=== PATIENT | female | born 1935 | race Caucasian/White ===

== ENCOUNTER 2018-12-21 17:38 | Inpatient (IN) ==
[2018-12-21] MEDS ORDERED: 0.9 % Sodium Chloride 500 ML IV ONE (19:38)
[2018-12-21] MEDS ORDERED: Morphine Sulfate 2 MG/ML SYRINGE IVP ONE (20:40)
[2018-12-21 20:54] LABS: Basophils % 0.7 %; Eosinophils # 0.1 K/mcL (0.0-0.6); Eosinophils % 2.4 %; Hematocrit 23.1 % (35.3-44.9); Hemoglobin 7.5 g/dL (11.5-15.4); Immature Granulocytes % 0.4 % (0-4); Lymphocytes % 21.8 %; Mean Corpuscular HGB Conc 32.5 g/dL (31.6-35.5); Mean Corpuscular Hemoglobin 31.4 pg (28.0-33.3); Mean Corpuscular Volume 96.7 fL (83.0-100.0); Mean Platelet Volume 10.6 fL (9.4-12.4); Monocytes # 0.4 K/mcL (0.0-1.3); Monocytes % 9.6 %; Neutrophils # 2.9 K/mcL (1.6-8.9); Platelet Count 151 K/mcL (140-400); Red Blood Count 2.39 M/mcL (3.82-4.97); Red Cell Distribution Width 13.4 % (11.5-14.5); Segmented Neutrophils % 65.1 %; White Blood Count 4.5 K/mcL (4.3-11.1)
[2018-12-21 21:01] LABS: INR 3.8
[2018-12-21 21:12] LABS: Calcium 8.1 mg/dL (8.6-10.3); Potassium 4.2 mEq/L (3.5-5.1)
[2018-12-21] MEDS ORDERED: Ringers Solution, Lactated 1,000 ML IVC SCH (22:30)
--- NOTE | 2018-12-21 22:32 | Internal Med History&Physical ---
Date of Encounter: 12/21/18 Time of Encounter: 22:31 Internal Medicine - H&P: HPI Chief complaint: bleeding Admitted From: Home Plans for Post Hospital Care: Home History of present illness: Patricia Laws is an 83-year-old woman with diverticulosis who required a partial sigmoidectomy in the past due to diverticulitis, atrial fibrillation for which she is on warfarin and had a pacemaker inserted in 2007 who went to [place] emergency room earlier today with left lower quadrant pain and abdominal cramping over the past few days and this morning developed bright red blood in her stool. She describes the pain as stabbing in nature with sharp colicky exacerbations radiating to words the backside. The bleeding episodes continued on 2 more occasions associated with nausea and vomiting in addition to the abdominal pain so she went to the ER for evaluation. Over there she was found to have a hemoglobin of 9.4 which is down from 12.4 that she had 2 months ago. Her INR was noted to be 3.8 despite a goal of 2-3. It is mentioned that her stool occult blood test was negative there even though it was grossly red in appearance so there was concern that perhaps the color was food related. A CT scan was done which showed no acute findings other than colonic diverticulosis. She was discharged to home with outpatient follow-up recommended in the next few days. She went home and continued to have more bleeding episodes so she came to our ER. She tells me she has been bleeding all day but it started at 5AM when I went to urinate and blood followed in my stool. She reports a history of constipation. While hemodynamically stable on arrival here, repeat lab work showed a decline in her hemoglobin to 7.5 from 9.4 earlier this morning. Her INR remained at 3.8. 2 units of packed red blood cells were ordered and she was administered a 5 mg dose of vitamin K in addition to 2 units of FFP. She is admitted for further care. Of note, she tells me during her last colonoscopy something was removed and she ended up having a lot of bleeding that required hospitalization and blood transfusions. Vitals: Reviewed General: Slim elderly woman lying in bed in NAD. Skin: Pale, cold and dry. HEENT: Dry mucous membranes. (+) conjunctivae pallor. Neck: No lymphadenopathy. No JVD. No carotid bruits. No palpable thyroid. Chest: Normal thoracic expansion. Normal breath sounds. Clear to auscultation. Heart: Normal S1 & S2; rhythmic. No rubs or murmurs. Abdomen: Non-distended, soft and notably tender to palpation in the left lower quadrant. No peritoneal reaction. Extremities: No clubbing, cyanosis or edema. No calf tenderness. Normal distal pulses. Neurological: Awake, alert and oriented to person, place and time. No focal deficits. Psych: Affect appropriate. Assessment/Plan 1. Lower GI bleed: Suspect secondary to diverticular disease in the setting of a supratherapeutic INR. She will undergo correction of her medication induced coagulopathic state which should help subside the bleeding as well as replete the blood volume loss. Acute care surgery will be consulted for follow-up over this weekend in case she may need a colonoscopy if the bleeding is ongoing. Fluid resuscitation will be started. Keep nothing by mouth for now. 2. Acute blood loss anemia: Secondary to lower GI bleed in the setting of supratherapeutic INR. As noted above, 2 units of blood will be given as replacement for stabilization. 3. Supratherapeutic INR: Secondary to warfarin use. FFP and vitamin K have been given for correction. 4. Atrial fibrillation: Currently rate controlled. Anticoagulant therapy will be on hold for now given the bleeding situation. The risks/benefits of ongoing use will need to be weighed given her elderly age and risk of bleeding recurrences. Past Med Surg Social Fam HX - Past Medical History Medical history: arthritis, atrial fibrillation, cancer, COPD, GERD, hyperlipidemia, hypertension, other Additional medical history: breast cancer. parkinson's dx Psychiatric history: anxiety, depression - Past Surgical History Surgical History: appendectomy, colectomy (diverticulitis), hysterectomy, orthopedic, other (Hip replacement, right foot surgery), pacemaker/AICD Additional surgical history: EGD. colonoscopy. hip replacement -bilat. right foot. excision SCC right posterior calf. left breast excison with hx of chemo and radiation - Social History Smoking Status: Former smoker Smokeless Tobacco Status: No Alcohol use: none Drug use: none - Family History Mother Hx Family Neurologic Disorders: Yes (stroke) Father Hx Family Cardiac Disorders: Yes Sister Hx Family Cardiac Disorders: Yes Hx Family Cancer: Yes Internal Medicine - H&P: Meds Carbidopa/Levodopa ER 50/200 [Sinemet ER 50-200 Tab] 1 tab PO TID 11/04/15 [History] Potassium Chloride [K-Tab ER] 10 meq PO DAILY 11/04/15 [History] TraZODone 50 mg PO HS 11/04/15 [History] Warfarin [Coumadin] 5 mg PO 1800 11/04/15 [History] Citalopram [CeleXA] 20 mg PO DAILY 03/14/16 [History] Lovastatin 40 mg PO HS 03/14/16 [History] Metoprolol [Lopressor] 50 mg PO DAILY 05/30/18 [History] Cholecalciferol (D-3) [Vitamin D] 1,000 unit PO DAILY 12/21/18 [History] Furosemide [Lasix] 40 mg PO DAILY 12/21/18 [History] Losartan Potassium [Cozaar] 100 mg PO DAILY 12/21/18 [History] Omeprazole [PriLOSEC] 20 mg PO DAILY 12/21/18 [History] Polyethylene Glycol 3350 [MiraLAX Powder Bulk 17.9 Oz] 1 scoop PO DAILY PRN 12/21/18 [History] rOPINIRole [Requip] 1 mg PO TID 12/21/18 [History] Allergy/AdvReac Type Severity Reaction Status Date / Time adhesive tape Allergy Hives Verified 12/21/18 21:13 cephalexin Allergy Hives Verified 12/21/18 21:13 diphenhydramine Allergy Hives Verified 12/21/18 21:13 [From Benadryl] Penicillins Allergy Hives Verified 12/21/18 21:13 Sulfa (Sulfonamide Allergy Hives Verified 12/21/18 21:13 Antibiotics) vancomycin Allergy Anaphylaxis Verified 12/21/18 21:13 All Systems PM: A 10-system review of systems was performed and is negative for pertinent findings except as documented above in the HPI. - Constitutional Vitals: Temp Pulse Resp BP Pulse Ox 98.2 F 71 18 162/69 100 12/21/18 18:47 12/21/18 22:24 12/21/18 22:24 12/21/18 22:24 12/21/18 22:24 Exam: . Internal Med - H&P Results - Labs CBC & Chem 7: 12/21/18 20:38 12/21/18 20:38 Labs: Short CBC 12/21/18 Range/Units 20:38 WBC 4.5 (4.3-11.1) K/mcL Hgb 7.5 L D (11.5-15.4) g/dL Hct 23.1 L (35.3-44.9) % Plt Count 151 (140-400) K/mcL Neutrophils # 2.9 (1.6-8.9) K/mcL BMP 12/21/18 20:38 Sodium 137 Potassium 4.2 Chloride 107 Carbon Dioxide 23 BUN 33 H Creatinine 1.19 Glucose 104 Calcium 8.1 L - Time Spent With Patient Total time spent is greater than 50% in coordination of care (as documented) at patient's floor/unit and/or counseling patient:
--- NOTE | 2018-12-21 22:51 | Emergency Department Note ---
Disposition Clinical Impression: Lower gastrointestinal hemorrhage Disposition: Admitted As Inpatient Condition: Fair Time of Disposition: 21:20 GI Bleed HPI - General Chief complaint: ED GI Bleed Stated complaint: Rectal bleeding Time Seen by Provider: 12/21/18 19:16 Source: patient Limitations: no limitations - History of Present Illness HPI Narrative: This is an 83-year-old female who presents today with a complaint of bright red blood per rectum. Patient is on Coumadin for atrial fibrillation. Patient states that she noticed bleeding earlier this morning when she went to the bathroom. She describes slight lower abdominal discomfort. She also describes generalized weakness. Patient was seen at [facility] emergency department today. She had a workup which included a negative CT scan of her abdomen. Her hemoglobin was 9. She was sent home. Patient states she continued to have bloody stools so she came to the emergency department today. She denies any fever or chills. She denies any chest pain. Pt Subjective Complaint: gross bloody stools Consistency: intermittent Severity: moderate Worsens with: bowel movement Context: anticoagulant use Associated symptoms: Reports: abdominal pain - Related Data Home Medications Medication Instructions Recorded Confirmed Carbidopa/Levodopa ER 50/200 1 tab PO TID 11/04/15 12/21/18 [Sinemet ER 50-200 Tab] Potassium Chloride [K-Tab ER] 10 meq PO DAILY 11/04/15 12/21/18 TraZODone 50 mg PO HS 11/04/15 12/21/18 Warfarin [Coumadin] 5 mg PO 1800 11/04/15 12/21/18 Citalopram [CeleXA] 20 mg PO DAILY 03/14/16 12/21/18 Lovastatin 40 mg PO HS 03/14/16 12/21/18 Metoprolol [Lopressor] 50 mg PO DAILY 05/30/18 12/21/18 Cholecalciferol (D-3) [Vitamin D] 1,000 unit PO DAILY 12/21/18 12/21/18 Furosemide [Lasix] 40 mg PO DAILY 12/21/18 12/21/18 Losartan Potassium [Cozaar] 100 mg PO DAILY 12/21/18 12/21/18 Omeprazole [PriLOSEC] 20 mg PO DAILY 12/21/18 12/21/18 Polyethylene Glycol 3350 [MiraLAX 1 scoop PO DAILY PRN 12/21/18 12/21/18 Powder Bulk 17.9 Oz] rOPINIRole [Requip] 1 mg PO TID 12/21/18 12/21/18 Allergies Allergy/AdvReac Type Severity Reaction Status Date / Time adhesive tape Allergy Hives Verified 12/21/18 21:13 cephalexin Allergy Hives Verified 12/21/18 21:13 diphenhydramine Allergy Hives Verified 12/21/18 21:13 [From Benadryl] Penicillins Allergy Hives Verified 12/21/18 21:13 Sulfa (Sulfonamide Allergy Hives Verified 12/21/18 21:13 Antibiotics) vancomycin Allergy Anaphylaxis Verified 12/21/18 21:13 Constitutional: Reports: weakness. Denies: fever, chills, weight change Eyes: Denies: eye pain, eye discharge, vision change ENT ED: Denies: ear pain, throat pain, dental pain, hearing loss, epistaxis, congestion, dysphagia Cardiovascular: Denies: chest pain, palpitations, dyspnea on exertion, edema, s yncope Respiratory: Denies: cough, dyspnea, wheezes, hemoptysis, stridor Gastrointestinal: Reports: abdominal pain. Denies: nausea, vomiting, diarrhea, constipation, hematemesis, melena, hematochezia Genitourinary: Denies: dysuria, frequency, hematuria, discharge Musculoskeletal: Denies: back pain, neck pain, arthralgia, myalgia Integumentary: Denies: rash, abrasion, lesions Neurological: Reports: weakness. Denies: headache, numbness, paresthesias, confusion, abnormal gait, vertigo Psychiatric: Denies: anxiety, depression, suicidal thoughts, homicidal thoughts, auditory hallucinations, visual hallucinations Endocrine: Denies: fatigue Hematological/Lymphatic: Denies: easy bleeding, easy bruising Allergic/Immunologic: Denies: facial swelling, urticaria Past Medical History - Past Medical History Medical history: Reports: arthritis, atrial fibrillation, cancer, COPD, GERD, hyperlipidemia, hypertension, other Surgical history: Reports: appendectomy, colectomy (diverticulitis), hysterectomy, orthopedic, other (Hip replacement, right foot surgery), pacemaker/AICD Psychiatric history: Reports: anxiety, depression - Social History Smoking Status: Former smoker Smokeless Tobacco Status: No Alcohol use: Reports: none Drug use: Reports: none Physical Exam - General Limitations: no limitations General appearance: alert, in no apparent distress - Head Head exam: atraumatic, normocephalic, normal inspection - Eye Eye exam: Present: normal appearance, PERRL, EOMI - Expanded Eye Exam Pupils: Left: reactive - ENT ENT exam: normal exam, normal oropharynx, mucous membranes moist - Expanded ENT Exam External ear exam: Present: normal external inspection Mouth exam: Present: normal external inspection Teeth exam: Present: normal inspection Throat exam: Present: normal inspection - Neck Neck exam: Present: normal inspection, full ROM, trachea midline - Chest Chest inspection: Present: normal inspection, symmetric chest wall rise - Respiratory Respiratory exam: Present: normal lung sounds bilaterally - Cardiovascular Cardiovascular exam: Present: regular rate, normal rhythm, normal heart sounds - Abdominal Exam Abdominal exam: Present: soft, tenderness. Absent: distention, guarding, rebound, rigidity Abdominal tenderness: Present: suprapubic - Rectal Exam Rectal exam: Present: heme (+) stool, bloody stool - Extremities Exam Extremities exam: Present: normal inspection, full ROM. Absent: tenderness, pedal edema - Expanded Upper Extremity Exam Shoulder exam: Present: normal inspection, full ROM Arm exam: Present: normal inspection, full ROM Elbow exam: Present: normal inspection, full ROM Forearm/Wrist exam: Present: normal inspection, full ROM Hand exam: Present: normal inspection, full ROM Vascular exam: Normal: capillary refill, radial pulse - Expanded Lower Extremity Exam Hip/Pelvis exam: Present: normal inspection, full ROM Upper leg exam: Present: normal inspection, full ROM Knee exam: Present: normal inspection, full ROM Lower leg exam: Present: normal inspection, full ROM Ankle exam: Present: normal inspection, full ROM Foot/toe exam: Present: normal inspection, full ROM Neurovascular/Tendon exam: Absent: motor deficit, sensory deficit, tendon deficit - Back Exam Back exam: Present: normal inspection, full ROM. Absent: tenderness - Neurological Exam Neurological exam: Present: alert, oriented X3, motor sensory deficit - Expanded Neurological Exam Patient oriented to: Present: person, place, time Coma Scale Eye Opening: Spontaneous Coma Scale Motor Response: Obeys Commands Coma Scale Verbal Response: Oriented Coma Scale Total: 15 - Psychiatric Psychiatric exam: Present: normal affect, normal mood - Skin Skin exam: Present: warm, dry, intact, normal color Course Vital Signs Temperature 98.2 F 12/21/18 18:47 Pulse Rate 70 12/21/18 18:47 Respiratory Rate 18 12/21/18 18:47 Blood Pressure 111/72 12/21/18 18:47 O2 Sat by Pulse Oximetry 94 12/21/18 18:47 Temperature 98.2 F 12/21/18 18:47 Pulse Rate 71 12/21/18 22:24 Respiratory Rate 18 12/21/18 22:24 Blood Pressure 162/69 12/21/18 22:24 O2 Sat by Pulse Oximetry 100 12/21/18 22:24 Oxygen Delivery Oxygen Delivery Room Air GI Bleed - MDM Narrative Medical decision making narrative: Clinical picture is consistent with lower GI bleed. likely due to Coumadin use. 2100 Pt is doing well. Will transfuse PRBC. Will also reverse Coumadin with FFP Pt's care discussed with hospitalist service. Will admit. I also discused care with Dr. Zavaleta - will consult. - Lab Data Result diagrams: 12/21/18 20:38 12/21/18 20:38 Lab Results 12/21/18 12/21/18 12/21/18 Range/Units 20:38 20:38 20:38 WBC 4.5 (4.3-11.1) K/mcL RBC 2.39 L (3.82-4.97) M/mcL Hgb 7.5 L D (11.5-15.4) g/dL Hct 23.1 L (35.3-44.9) % MCV 96.7 (83.0-100.0) fL MCH 31.4 (28.0-33.3) pg MCHC 32.5 (31.6-35.5) g/dL RDW 13.4 (11.5-14.5) % Plt Count 151 (140-400) K/mcL MPV 10.6 (9.4-12.4) fL Immature Gran % 0.4 (0-4) % Seg Neutrophils % 65.1 % Lymphocytes % 21.8 % Monocytes % 9.6 % Eosinophils % 2.4 % Basophils % 0.7 % Neutrophils # 2.9 (1.6-8.9) K/mcL Lymphocytes # 1.0 (0.6-4.6) K/mcL Monocytes # 0.4 (0.0-1.3) K/mcL Eosinophils # 0.1 (0.0-0.6) K/mcL Basophils # 0.0 (0.0-0.2) K/mcL PT 43.0 H (9.4-12.1) Seconds INR 3.8 Sodium 137 (136-145) mEq/L Potassium 4.2 (3.5-5.1) mEq/L Chloride 107 (98-107) mEq/L Carbon Dioxide 23 (23-29) mEq/L BUN 33 H (8-23) mg/dL Creatinine 1.19 (0.60-1.20) mg/dL Est GFR ( Amer) 53 L (> 60) Est GFR (Non-Af Amer) 43 L (> 60) BUN/Creatinine Ratio 28 H (6-26) Glucose 104 (70-105) mg/dL Calculated Osmolality 292 (280-300) Calcium 8.1 L (8.6-10.3) mg/dL Blood Type Antibody Screen Crossmatch 12/21/18 Range/Units 20:38 WBC (4.3-11.1) K/mcL RBC (3.82-4.97) M/mcL Hgb (11.5-15.4) g/dL Hct (35.3-44.9) % MCV (83.0-100.0) fL MCH (28.0-33.3) pg MCHC (31.6-35.5) g/dL RDW (11.5-14.5) % Plt Count (140-400) K/mcL MPV (9.4-12.4) fL Immature Gran % (0-4) % Seg Neutrophils % % Lymphocytes % % Monocytes % % Eosinophils % % Basophils % % Neutrophils # (1.6-8.9) K/mcL Lymphocytes # (0.6-4.6) K/mcL Monocytes # (0.0-1.3) K/mcL Eosinophils # (0.0-0.6) K/mcL Basophils # (0.0-0.2) K/mcL PT (9.4-12.1) Seconds INR Sodium (136-145) mEq/L Potassium (3.5-5.1) mEq/L Chloride (98-107) mEq/L Carbon Dioxide (23-29) mEq/L BUN (8-23) mg/dL Creatinine (0.60-1.20) mg/dL Est GFR ( Amer) (> 60) Est GFR (Non-Af Amer) (> 60) BUN/Creatinine Ratio (6-26) Glucose (70-105) mg/dL Calculated Osmolality (280-300) Calcium (8.6-10.3) mg/dL Blood Type B POSITIVE Antibody Screen NEGATIVE Crossmatch See Detail Critical Care Time Critical Care Time: Yes Total Critical Care Time: 60 Attestation: Critical care for management and evaluation of GI Bleed
[2018-12-21] MEDS ORDERED: Acetaminophen 325 MG TABLET PO PRN (23:26)
[2018-12-21] MEDS ORDERED: 0.9 % Sodium Chloride 250 ML ONE (23:36)
[2018-12-22] MEDS ORDERED: 0.9 % Sodium Chloride 250 ML ONE ×4 (00:20→12:48)
[2018-12-22] MEDS: Ondansetron 4 MG/2 ML VIAL IVP PRN ×3 (00:32→19:47)
[2018-12-22] MEDS ORDERED: Furosemide 40 MG/4 ML VIAL IVP PRN (01:38)
[2018-12-22 09:18] LABS: Hematocrit 20.5 % (35.3-44.9); Hemoglobin 6.6 g/dL (11.5-15.4)
[2018-12-22] MEDS: Cholecalciferol (D-3) 1,000 UNIT (25MCG) TABLET PO SCH (09:19)
[2018-12-22] MEDS: rOPINIRole 1 MG TABLET PO SCH ×3 (09:19→19:47)
[2018-12-22] MEDS: Carbidopa/Levodopa ER 50/200 TABLET PO SCH ×3 (09:19→19:47)
[2018-12-22 09:45] LABS: INR 1.5; Prothrombin Time 16.8 Seconds (9.4-12.1)
--- NOTE | 2018-12-22 11:42 | Internal Med Progress Note ---
Hospitalist Progress Note - Encounter Date of Encounter: 12/22/18 Time of Encounter: 11:38 - Subjective Interval History: She was seen and examined at bedside this morning. She was admitted yesterday in the evening for lower GI bleed. Patient reports that she continues to have blood in her stool. Patient perhaps mild abdominal pain. Denies any fever and chills. From this, denies any acute issues and concerns at this time. - Exam Vitals: Temp Pulse Resp BP Pulse Ox 98.3 F 74 16 147/74 98 12/22/18 06:40 12/22/18 06:40 12/22/18 06:40 12/22/18 06:40 12/22/18 06:40 Exam: General: A & O 3, In no acute distress Skin: Pale and dry HENNT: PERRLA. Head atraumatic and makes supple CVS S1 and S2 regular, no murmur RS: Clear to air entry bilaterally, no wheeze, no crackles Abdomen: Soft and nontender. Bowel sounds normal 4 Extremities: No cyanosis, clubbing, and edema - Assessment and Plan (1) Lower gastrointestinal hemorrhage Current Visit: Yes Status: Acute Assessment and Plan: Patient's presents to the hospital yesterday for lower GI bleed. Patient has a history of diverticulosis with diverticulitis in the past. Patient also has a history of atrial fibrillation and currently on Coumadin for anticoagulation. On initial evaluation patient's INR was found to be supratherapeutic at 3.8. - Patient received PRBC 2, vitamin K 5 mg 1, FFP 2. - Patient's hemoglobin was rechecked and was found to be still low in the m orning. We will transfuse 1 more PRBC. - Repeat INR was 1.5. - Acute gastric surgery was not consulted and was informed about repeat INR. She will be placed on clear diet and bowel prep today. Plan to scope tomorrow. (2) Atrial fibrillation, chronic Current Visit: No Status: Acute Assessment and Plan: We will continue metoprolol. Will hold Coumadin. Patient currently in sinus rhythm. (3) Supratherapeutic INR Current Visit: No Status: Acute Assessment and Plan: Patient received vitamin K 5 mg 1 and FFP 2. Repeat INR is 1.5. We will continue to hold warfarin. (4) CAD (coronary artery disease) Current Visit: No Status: Chronic Assessment and Plan: Continue statin, ARB and beat leroy. (5) Hyperlipidemia Current Visit: No Status: Chronic Assessment and Plan: Continue statin (6) Hypertension Current Visit: No Status: Chronic Assessment and Plan: Continue losartan and metoprolol. Continue Lasix. (7) Parkinson disease Current Visit: Yes Status: Chronic Assessment and Plan: Continue Sinemet at home dose. Parkinson's is well controlled. - Time Spent with Patient Total time spent is greater than 50% in coordination of care (as documented) at patient's floor/unit and/or counseling patient: 25 - 35 minutes Plan of Care Discussed with: patient Internal Medicine: Result - Labs CBC & Chem 7: 12/22/18 09:06 12/21/18 20:38 Labs: Short CBC 12/21/18 12/22/18 Range/Units 20:38 09:06 WBC 4.5 (4.3-11.1) K/mcL Hgb 7.5 L D 6.6 L (11.5-15.4) g/dL Hct 23.1 L 20.5 L (35.3-44.9) % Plt Count 151 (140-400) K/mcL Neutrophils # 2.9 (1.6-8.9) K/mcL BMP 12/21/18 20:38 Sodium 137 Potassium 4.2 Chloride 107 Carbon Dioxide 23 BUN 33 H Creatinine 1.19 Glucose 104 Calcium 8.1 L - ABG Interpretation ABG results: PT/INR, D-dimer PT 16.8 Seconds (9.4-12.1) H D 12/22/18 09:06 Consult Discharge Plan - Plan Referrals: Gail De Paz [Primary Care Provider] - (4) CAD (coronary artery disease) Qualifiers: Coronary Disease-Associated Artery/Lesion type: [place] artery [place] vs. transplanted heart: [place] heart Associated angina: without angina Qualified Code(s): I25.10 - Atherosclerotic heart disease of [place] coronary artery without angina pectoris (5) Hyperlipidemia Qualifiers: Hyperlipidemia type: other hyperlipidemia Qualified Code(s): E78.49 - Other hyperlipidemia; E78.4 - Other hyperlipidemia (6) Hypertension Qualifiers: Hypertension type: essential hypertension Qualified Code(s): I10 - Essential (primary) hypertension
--- NOTE | 2018-12-22 12:26 | AcuteCare Surgery Consult Note ---
Date of Encounter: 12/22/18 Time of Encounter: 12:22 Assessment and Plan (1) Lower gastrointestinal hemorrhage Current Visit: Yes Status: Acute 83F with LGIB; h/h still down trending; patient does not report any hemodynamic symptoms suggestive of instability; CLD, NPO at midnight trend h/h miralax bowel prep EGD, colonoscopy on 12/23 History of Present Illness Consult date: 12/22/18 Reason for consult: other (lower GI bleed) History of present illness: 83F PMh significant for diverticulosis/diverticulitis s/p sigmoid resection, atrial fibrilation on coumadin, s/p pacemaker who presented with lower GI bleeding; The patient states that it has been virtually non stop. NO associated dizziness, lightheadedness, chest pain, nor shortness of breath. The patient also reports associated weight loss of about 15lbs over 3 months that is unintentional. She was evaluated in the ED and found to have a hgb of ~ 9. She has continued to bleed and is now at 6.6. Her INR was at 3.8. She has since been reversed and is no2 1.5. her last colonoscopy and EGD was about 6-7 years ago without any findings concerning for malignancy. Acute care surgery was consulted for management recommendation Past Med Surg Social Fam HX - Past Medical History Medical history: arthritis, atrial fibrillation, cancer, COPD, GERD, hyperlipidemia, hypertension, other Additional medical history: breast cancer. parkinson's dx Psychiatric history: anxiety, depression - Past Surgical History Surgical History: hip replacement, hysterectomy, knee replacement Additional surgical history: EGD. colonoscopy. hip replacement -bilat. right foot. excision SCC right posterior calf. left breast excison with hx of chemo and radiation - Social History Smoking Status: Former smoker Smokeless Tobacco Status: No Alcohol use: none Drug use: none - Family History Mother Hx Family Neurologic Disorders: Yes (stroke) Father Hx Family Cardiac Disorders: Yes Sister Hx Family Cardiac Disorders: Yes Hx Family Cancer: Yes Medications and Allergies Carbidopa/Levodopa ER 50/200 [Sinemet ER 50-200 Tab] 1 tab PO TID 11/04/15 [History] Potassium Chloride [K-Tab ER] 10 meq PO DAILY 11/04/15 [History] TraZODone 50 mg PO HS 11/04/15 [History] Warfarin [Coumadin] 5 mg PO 1800 11/04/15 [History] Citalopram [CeleXA] 20 mg PO DAILY 03/14/16 [History] Lovastatin 40 mg PO HS 03/14/16 [History] Metoprolol [Lopressor] 50 mg PO DAILY 05/30/18 [History] Cholecalciferol (D-3) [Vitamin D] 1,000 unit PO DAILY 12/21/18 [History] Furosemide [Lasix] 40 mg PO DAILY 12/21/18 [History] Losartan Potassium [Cozaar] 100 mg PO DAILY 12/21/18 [History] Omeprazole [PriLOSEC] 20 mg PO DAILY 12/21/18 [History] Polyethylene Glycol 3350 [MiraLAX Powder Bulk 17.9 Oz] 1 scoop PO DAILY PRN 12/21/18 [History] rOPINIRole [Requip] 1 mg PO TID 12/21/18 [History] Allergy/AdvReac Type Severity Reaction Status Date / Time adhesive tape Allergy Hives Verified 12/21/18 21:13 cephalexin Allergy Hives Verified 12/21/18 21:13 diphenhydramine Allergy Hives Verified 12/21/18 21:13 [From Benadryl] Penicillins Allergy Hives Verified 12/21/18 21:13 Sulfa (Sulfonamide Allergy Hives Verified 12/21/18 21:13 Antibiotics) vancomycin Allergy Anaphylaxis Verified 12/21/18 21:13 Review of Systems All systems PM: 12 point ROS negative besides HPI findings General Surgery Exam Initial Vital Signs Temp Pulse Resp BP Pulse Ox 98.2 F 70 18 111/72 94 12/21/18 18:47 12/21/18 18:47 12/21/18 18:47 12/21/18 18:47 12/21/18 18:47 - General physical appearance no distress - Eyes PERRL, normal ocular movement - ENT normal mucosa, normocephalic - Neck trachea midline, no lymphadectomy - Respiratory normal expansion, normal respiratory effort - Cardiovascular Cardiovascular exam: Present: RRR - Abdomen Abdomen general surgery: Present: soft, non tender - Integumentary Integumentary general surgery: Present: warm and dry, no abnormal pigmentation - Neurologic Present: CN 2-12 grossly intact - Musculoskeletal Present: normal posture - Psychiatric Psychiatric general surgery: Present: A&Ox3 Exam Initial Vital Signs Temp Pulse Resp BP Pulse Ox 98.2 F 70 18 111/72 94 12/21/18 18:47 12/21/18 18:47 12/21/18 18:47 12/21/18 18:47 12/21/18 18:47 Results - Labs 12/22/18 09:06 12/21/18 20:38 Abnormal lab results RBC 2.39 M/mcL (3.82-4.97) L 12/21/18 20:38 Hgb 6.6 g/dL (11.5-15.4) L 12/22/18 09:06 Hct 20.5 % (35.3-44.9) L 12/22/18 09:06 PT 16.8 Seconds (9.4-12.1) H D 12/22/18 09:06 BUN 33 mg/dL (8-23) H 12/21/18 20:38 Est GFR ( Amer) 53 (> 60) L 12/21/18 20:38 Est GFR (Non-Af Amer) 43 (> 60) L 12/21/18 20:38 BUN/Creatinine Ratio 28 (6-26) H 12/21/18 20:38 Calcium 8.1 mg/dL (8.6-10.3) L 12/21/18 20:38 Crossmatch See Detail 12/21/18 20:38 Diabetes panel 12/21/18 Range/Units 20:38 Sodium 137 (136-145) mEq/L Potassium 4.2 (3.5-5.1) mEq/L Chloride 107 (98-107) mEq/L Carbon Dioxide 23 (23-29) mEq/L BUN 33 H (8-23) mg/dL Creatinine 1.19 (0.60-1.20) mg/dL Glucose 104 (70-105) mg/dL Calcium 8.1 L (8.6-10.3) mg/dL Calcium panel 12/21/18 Range/Units 20:38 Calcium 8.1 L (8.6-10.3) mg/dL Pituitary panel 12/21/18 Range/Units 20:38 Sodium 137 (136-145) mEq/L Potassium 4.2 (3.5-5.1) mEq/L Chloride 107 (98-107) mEq/L Carbon Dioxide 23 (23-29) mEq/L BUN 33 H (8-23) mg/dL Creatinine 1.19 (0.60-1.20) mg/dL Glucose 104 (70-105) mg/dL Calcium 8.1 L (8.6-10.3) mg/dL Adrenal panel 12/21/18 Range/Units 20:38 Sodium 137 (136-145) mEq/L Potassium 4.2 (3.5-5.1) mEq/L Chloride 107 (98-107) mEq/L Carbon Dioxide 23 (23-29) mEq/L BUN 33 H (8-23) mg/dL Creatinine 1.19 (0.60-1.20) mg/dL Glucose 104 (70-105) mg/dL Calcium 8.1 L (8.6-10.3) mg/dL All other labs normal. Consult Discharge Plan - Plan Referrals: Gail De Paz [Primary Care Provider] -
[2018-12-22] MEDS ORDERED: SODIUM CHLORIDE/NAHCO3/KCL/PEG 4,000 ML SOLN.RECON PO ONE (17:00)
[2018-12-22 17:16] LABS: Hematocrit 24.2 % (35.3-44.9)
[2018-12-22 17:23] LABS: INR 1.3; Prothrombin Time 14.8 Seconds (9.4-12.1)
[2018-12-22] MEDS: traZODone 50 MG TABLET PO SCH (19:47)
[2018-12-23] MEDS ORDERED: Acetaminophen IV 500 MG/50 ML INFUS..BTL IVPB ONE (00:22)
[2018-12-23 04:57] LABS: Basophils % 0.4 %; Eosinophils # 0.1 K/mcL (0.0-0.6); Eosinophils % 2.3 %; Hematocrit 24.2 % (35.3-44.9); Hemoglobin 7.8 g/dL (11.5-15.4); Immature Granulocytes % 0.2 % (0-4); Lymphocytes # 0.8 K/mcL (0.6-4.6); Lymphocytes % 16.5 %; Mean Corpuscular HGB Conc 32.2 g/dL (31.6-35.5); Mean Corpuscular Hemoglobin 30.2 pg (28.0-33.3); Mean Corpuscular Volume 93.8 fL (83.0-100.0); Mean Platelet Volume 10.5 fL (9.4-12.4); Monocytes # 0.4 K/mcL (0.0-1.3); Monocytes % 9.2 %; Neutrophils # 3.4 K/mcL (1.6-8.9); Platelet Count 115 K/mcL (140-400); Red Blood Count 2.58 M/mcL (3.82-4.97); Red Cell Distribution Width 14.7 % (11.5-14.5); Segmented Neutrophils % 71.4 %; White Blood Count 4.8 K/mcL (4.3-11.1)
[2018-12-23 05:04] LABS: INR 1.1
[2018-12-23 05:16] LABS: BUN/Creatinine Ratio 19 (6-26); Blood Urea Nitrogen 17 mg/dL (8-23); Calcium 7.9 mg/dL (8.6-10.3); Carbon Dioxide 25 mEq/L (23-29); Chloride 108 mEq/L (98-107); Glucose 96 mg/dL (70-105); Osmolality,Calculated 289 (280-300); Potassium 3.9 mEq/L (3.5-5.1); Sodium 139 mEq/L (136-145); eGFR For African Americans > 60 (> 60); eGFR For Non-African Americans > 60 (> 60)
[2018-12-23] MEDS: rOPINIRole 1 MG TABLET PO SCH ×3 (09:14→21:17)
[2018-12-23] MEDS: Cholecalciferol (D-3) 1,000 UNIT (25MCG) TABLET PO SCH (09:15)
[2018-12-23] MEDS: Carbidopa/Levodopa ER 50/200 TABLET PO SCH ×3 (09:15→21:17)
--- NOTE | 2018-12-23 11:27 | Internal Med Progress Note ---
Hospitalist Progress Note - Encounter Date of Encounter: 12/23/18 Time of Encounter: 11:25 - Subjective Interval History: Patient was seen and examined at bedside today. Patient reports that her lower GI bleed in the stool has controlled since that admission. She had a bowel movement this morning and she has a pinkish and some red streaking in her stool rather than the amauri bloody stool. She denied any abdominal pain, fever, chills, nausea, and vomiting. Patient has been getting Bolla prep since yesterday. Patient will undergo EGD and colonoscopy today. - Exam Vitals: Temp Pulse Resp BP Pulse Ox 98.3 F 72 16 159/75 98 12/23/18 08:56 12/23/18 08:56 12/23/18 08:56 12/23/18 08:56 12/23/18 08:56 Exam: General: A & O 3, In no acute distress Skin: Pale and dry HENNT: PERRLA. Head atraumatic and makes supple CVS S1 and S2 regular, no murmur RS: Clear to air entry bilaterally, no wheeze, no crackles Abdomen: Soft and nontender. Bowel sounds normal 4 Extremities: No cyanosis, clubbing, and edema - Assessment and Plan (1) Lower gastrointestinal hemorrhage Current Visit: Yes Status: Acute Assessment and Plan: Patient's presents to the hospital yesterday for lower GI bleed. Patient has a history of diverticulosis with diverticulitis in the past. Patient also has a history of atrial fibrillation and currently on Coumadin for anticoagulation. On initial evaluation patient's INR was found to be supratherapeutic at 3.8. Patient INR has trended down to 1.3. Hemoglobin today 7.8. Patient will undergo EGD and colonoscopy today. We will continue to monitor. (2) Atrial fibrillation, chronic Current Visit: No Status: Acute Assessment and Plan: We will continue metoprolol. Will hold Coumadin. Patient currently in sinus rhythm. (3) Supratherapeutic INR Current Visit: No Status: Acute Assessment and Plan: Resolved. INR today 1.3 (4) CAD (coronary artery disease) Current Visit: No Status: Chronic Assessment and Plan: Continue statin, ARB and beat leroy. (5) Hyperlipidemia Current Visit: No Status: Chronic Assessment and Plan: Continue statin (6) Hypertension Current Visit: No Status: Chronic Assessment and Plan: Continue losartan and metoprolol. Continue Lasix. (7) Parkinson disease Current Visit: Yes Status: Chronic Assessment and Plan: Continue Sinemet at home dose. Parkinson's is well controlled. DVT Prophylaxis: Antiembolic stocking. - Time Spent with Patient Total time spent is greater than 50% in coordination of care (as documented) at patient's floor/unit and/or counseling patient: Plan of Care Discussed with: patient Internal Medicine: Result - Labs CBC & Chem 7: 12/23/18 04:42 12/23/18 04:42 Labs: Short CBC 12/22/18 12/23/18 Range/Units 17:03 04:42 WBC 4.8 (4.3-11.1) K/mcL Hgb 8.0 L 7.8 L (11.5-15.4) g/dL Hct 24.2 L 24.2 L (35.3-44.9) % Plt Count 115 L (140-400) K/mcL Neutrophils # 3.4 (1.6-8.9) K/mcL BMP 12/23/18 04:42 Sodium 139 Potassium 3.9 Chloride 108 H Carbon Dioxide 25 BUN 17 Creatinine 0.89 Glucose 96 Calcium 7.9 L - ABG Interpretation ABG results: PT/INR, D-dimer PT 13.0 Seconds (9.4-12.1) H 12/23/18 04:42 Consult Discharge Plan - Plan Referrals: Gail De Paz [Primary Care Provider] - (4) CAD (coronary artery disease) Qualifiers: Coronary Disease-Associated Artery/Lesion type: [place] artery [place] vs. tra nsplanted heart: [place] heart Associated angina: without angina Qualified Code(s): I25.10 - Atherosclerotic heart disease of [place] coronary artery without angina pectoris (5) Hyperlipidemia Qualifiers: Hyperlipidemia type: other hyperlipidemia Qualified Code(s): E78.49 - Other hyperlipidemia; E78.4 - Other hyperlipidemia (6) Hypertension Qualifiers: Hypertension type: essential hypertension Qualified Code(s): I10 - Essential (primary) hypertension
[2018-12-23] MEDS ORDERED: *HR* FentaNYL (PF) 100 MCG/2 ML VIAL ONE (11:38)
[2018-12-23] MEDS ORDERED: *HR* Midazolam HCl 5 MG/5 ML VIAL IVP ONE ×2 (11:38→13:25)
[2018-12-23] MEDS ORDERED: *HR* FentaNYL (PF) 100 MCG/2 ML VIAL IVP ONE (13:25)
[2018-12-23] MEDS ORDERED: Tetracaine/Benzocaine/Butamben 1 SPRAY AEROSOL MM ONE (13:25)
--- NOTE | 2018-12-23 13:27 | Pre-Sedation Evaluation ---
Pre-sedation evaluation - Pre-sedation checklist Date of procedure: 12/23/18 Procedure: egd, colonoscopy Recent Vitals: Last Vital Signs Temp 98.3 F 12/23/18 12:25 Pulse 74 12/23/18 13:25 Resp 16 12/23/18 13:25 BP 164/83 12/23/18 13:25 Pulse Ox 100 12/23/18 13:25 H&P (including ROS) documented in medical record: Yes Dietary Status: NPO after Midnight ASA Classification *see protocol: CLASS III-Severe systemic disease Plan of Care: Pt appropriate candidate for procedure/moderate/conscious sedation, Risks/benefits of procedure/sedation discussed w/ patient/family Cardiac Registry (Cardio Only) - Clincal Frailty Scale Clinical Frailty Scale: Well
[2018-12-23] MEDS: 0.9 % Sodium Chloride 500 ML IVC SCH (13:30)
[2018-12-23] MEDS ORDERED: Simethicone 40 MG/0.6 ML MLS IR ONE (13:31)
--- NOTE | 2018-12-23 15:19 | AcuteCareSurgery Progress Note ---
Date of Encounter: 12/23/18 Time of Encounter: 15:17 - Assessment and Plan (1) Lower gastrointestinal hemorrhage Current Visit: Yes Status: Acute 83F with LGIB now s/p EGD and colonoscopy (egd demonstrated hiatal hernia, colonoscopy demonstrated extensive diverticulosis); trend h/h transfuse as needed no acute surgery until transfusions unable to keep up with bleeding diet as tolerated acute care surgery will sign off; please call with any new questions or concerns Subjective Patient reports: no new complaints, afebrile Objective Vital Signs - Last 8 Hours Temp Pulse Resp BP Pulse Ox 12/23/18 14:12 97.9 F 81 18 168/78 94 12/23/18 13:50 70 16 150/75 99 12/23/18 13:45 68 16 150/75 99 12/23/18 13:40 71 16 145/77 99 12/23/18 13:35 77 16 169/92 100 12/23/18 13:30 71 14 179/89 100 12/23/18 13:25 74 16 164/83 100 12/23/18 12:25 98.3 F 58 17 148/76 97 12/23/18 11:47 98.3 F 70 18 189/83 100 12/23/18 08:56 98.3 F 72 16 159/75 98 Intake and Output 12/22/18 12/23/18 12/23/18 23:59 07:59 15:59 Intake Total 470 / 1510 50 / 250 200 / 250 Output Total 200 / 600 Balance 270 / 910 50 / 250 200 / 250 Intake: IV Fluids 50 / 250 200 / 250 0.9 % Sodium Chloride 500 ML @ 200 / 200 50 mls/hr IVC .Q10H ADALID Rx#: [id number] Ofirmev 1,000 mg/100 ml 500 mg 50 / 50 In 50 ml @ 200 mls/hr IVPB ONCE ONE Rx#:[id number] Oral 120 / 1160 Blood Product 350 / 350 Rbcs Leuko Poor As-1 Unit 350 / 350 [id number] Output: Emesis 200 / 200 Other: Meal Dinner Percent of Meal Consumed 5% # Voids 1 Blood Glucose* 91 - General physical appearance no distress - Respiratory normal expansion, normal respiratory effort - Cardiovascular Cardiovascular exam: Present: RRR - Abdomen Abdomen: Present: soft, non tender - Neurologic CN 2-12 grossly intact - Psychiatric oriented to time, oriented to person, oriented to place - Labs 12/23/18 04:42 12/23/18 04:42 Diabetes panel 12/23/18 Range/Units 04:42 Sodium 139 (136-145) mEq/L Potassium 3.9 (3.5-5.1) mEq/L Chloride 108 H (98-107) mEq/L Carbon Dioxide 25 (23-29) mEq/L BUN 17 (8-23) mg/dL Creatinine 0.89 (0.60-1.20) mg/dL Glucose 96 (70-105) mg/dL Calcium 7.9 L (8.6-10.3) mg/dL Calcium panel 12/23/18 Range/Units 04:42 Calcium 7.9 L (8.6-10.3) mg/dL Pituitary panel 12/23/18 Range/Units 04:42 Sodium 139 (136-145) mEq/L Potassium 3.9 (3.5-5.1) mEq/L Chloride 108 H (98-107) mEq/L Carbon Dioxide 25 (23-29) mEq/L BUN 17 (8-23) mg/dL Creatinine 0.89 (0.60-1.20) mg/dL Glucose 96 (70-105) mg/dL Calcium 7.9 L (8.6-10.3) mg/dL Adrenal panel 12/23/18 Range/Units 04:42 Sodium 139 (136-145) mEq/L Potassium 3.9 (3.5-5.1) mEq/L Chloride 108 H (98-107) mEq/L Carbon Dioxide 25 (23-29) mEq/L BUN 17 (8-23) mg/dL Creatinine 0.89 (0.60-1.20) mg/dL Glucose 96 (70-105) mg/dL Calcium 7.9 L (8.6-10.3) mg/dL Consult Discharge Plan - Plan Referrals: Gail De Paz [Primary Care Provider] -
[2018-12-23 16:13] LABS: Hematocrit 26.3 % (35.3-44.9); Hemoglobin 8.5 g/dL (11.5-15.4)
[2018-12-23] MEDS: traZODone 50 MG TABLET PO SCH (21:17)
[2018-12-24 04:38] LABS: Basophils % 0.2 %; Eosinophils # 0.2 K/mcL (0.0-0.6); Eosinophils % 4.4 %; Hematocrit 24.1 % (35.3-44.9); Hemoglobin 7.7 g/dL (11.5-15.4); Immature Granulocytes % 0.5 % (0-4); Lymphocytes # 0.8 K/mcL (0.6-4.6); Lymphocytes % 19.5 %; Mean Corpuscular Hemoglobin 30.7 pg (28.0-33.3); Mean Platelet Volume 10.9 fL (9.4-12.4); Monocytes # 0.4 K/mcL (0.0-1.3); Monocytes % 9.3 %; Neutrophils # 2.8 K/mcL (1.6-8.9); Platelet Count 125 K/mcL (140-400); Red Blood Count 2.51 M/mcL (3.82-4.97); Red Cell Distribution Width 14.6 % (11.5-14.5); Segmented Neutrophils % 66.1 %; White Blood Count 4.3 K/mcL (4.3-11.1)
[2018-12-24] MEDS: Ondansetron 4 MG/2 ML VIAL IVP PRN (06:38)
[2018-12-24] MEDS: 0.9 % Sodium Chloride 500 ML IVC SCH (08:06)
[2018-12-24] MEDS: Cholecalciferol (D-3) 1,000 UNIT (25MCG) TABLET PO SCH (09:05)
[2018-12-24] MEDS: Carbidopa/Levodopa ER 50/200 TABLET PO SCH (09:05)
[2018-12-24] MEDS: rOPINIRole 1 MG TABLET PO SCH (09:05)
[2018-12-24 09:52] VITALS: BP 146/72
[2018-12-24 10:39] LABS: Hemoglobin 8.6 g/dL (11.5-15.4)
--- NOTE | 2018-12-24 10:49 | Discharge Summary ---
- NOTES TO OUTPATIENT PROVIDER Notes to Outpatient Provider: Patient was admitted to the hospital due to GI bleed. Patient has a history ATRIAL fibrillation and she was on Coumadin for atrial fibrillation. Patient's Coumadin was hold. Patient received PRBC. Patient's hemoglobin improved. Patient had a EGD and colonoscopy done which did not show any bleeding lesion. Patient is improving and hemoglobin is trending up to 8.6. Patient discharged in stable condition. Patient is to follow-up with primary care provider within one week. Coumadin can be started outpatient if normal signs and symptom of active bleeding noted. Date of Encounter: 12/24/18 Time of Encounter: 10:47 - Discharge Diagnosis (1) Lower gastrointestinal hemorrhage Priority: Primary Status: Acute (2) Atrial fibrillation, chronic Priority: Secondary Status: Acute (3) Supratherapeutic INR Priority: Secondary Status: Acute (4) CAD (coronary artery disease) Priority: Secondary Status: Chronic Qualifiers: Coronary Disease-Associated Artery/Lesion type: [place] artery [place] vs. transplanted heart: [place] heart Associated angina: without angina Qualified Code(s): I25.10 - Atherosclerotic heart disease of [place] coronary artery without angina pectoris (5) Hyperlipidemia Priority: Secondary Status: Chronic Qualifiers: Hyperlipidemia type: other hyperlipidemia Qualified Code(s): E78.49 - Other hyperlipidemia; E78.4 - Other hyperlipidemia (6) Hypertension Priority: Secondary Status: Chronic Qualifiers: Hypertension type: essential hypertension Qualified Code(s): I10 - Essential (primary) hypertension (7) Parkinson disease Priority: Secondary Status: Chronic Hospital course: Ms. Laws is a 83 year old female was admitted to the hospital due to GI bleed. Patient has a history ATRIAL fibrillation and she was on Coumadin for atrial fibrillation. Patient's Coumadin was hold. Patient received PRBC. Patient's hemoglobin improved. Patient had a EGD and colonoscopy done which did not show any bleeding lesion. Patient is improving and hemoglobin is trending up to 8.6. Patient discharged in stable condition. Patient is to follow-up with primary care provider within one week. Coumadin can be started outpatient if normal signs and symptom of active bleeding noted. Discharge discussed with: patient, family, nurse, social work - Time Spent with Patient Total time spent providing and/or coordinating discharge services: 35 Time spent: Greater than 30 minutes - Discharge Medications Prescriptions: Continued Carbidopa/Levodopa ER 50/200 [Sinemet ER 50-200 Tab] 1 tab PO TID Potassium Chloride [K-Tab ER] 10 meq PO DAILY TraZODone 50 mg PO HS Citalopram [CeleXA] 20 mg PO DAILY Lovastatin 40 mg PO HS Metoprolol [Lopressor] 50 mg PO DAILY Omeprazole [PriLOSEC] 20 mg PO DAILY rOPINIRole [Requip] 1 mg PO TID Polyethylene Glycol 3350 [MiraLAX Powder Bulk 17.9 Oz] 1 scoop PO DAILY PRN PRN Reason: Constipation Cholecalciferol (D-3) [Vitamin D] 1,000 unit PO DAILY Losartan Potassium [Cozaar] 100 mg PO DAILY Furosemide [Lasix] 40 mg PO DAILY Discontinued Warfarin [Coumadin] 5 mg PO 1800 Home Medications: Carbidopa/Levodopa ER 50/200 [Sinemet ER 50-200 Tab] 1 tab PO TID 11/04/15 [History] Potassium Chloride [K-Tab ER] 10 meq PO DAILY 11/04/15 [History] TraZODone 50 mg PO HS 11/04/15 [History] Citalopram [CeleXA] 20 mg PO DAILY 03/14/16 [History] Lovastatin 40 mg PO HS 03/14/16 [History] Metoprolol [Lopressor] 50 mg PO DAILY 05/30/18 [History] Cholecalciferol (D-3) [Vitamin D] 1,000 unit PO DAILY 12/21/18 [History] Furosemide [Lasix] 40 mg PO DAILY 12/21/18 [History] Losartan Potassium [Cozaar] 100 mg PO DAILY 12/21/18 [History] Omeprazole [PriLOSEC] 20 mg PO DAILY 12/21/18 [History] Polyethylene Glycol 3350 [MiraLAX Powder Bulk 17.9 Oz] 1 scoop PO DAILY PRN 12/21/18 [History] rOPINIRole [Requip] 1 mg PO TID 12/21/18 [History] Allergies/Adverse Reactions: Allergy/AdvReac Type Severity Reaction Status Date / Time adhesive tape Allergy Hives Verified 12/21/18 21:13 cephalexin Allergy Hives Verified 12/21/18 21:13 diphenhydramine Allergy Hives Verified 12/21/18 21:13 [From Benadryl] Penicillins Allergy Hives Verified 12/21/18 21:13 Sulfa (Sulfonamide Allergy Hives Verified 12/21/18 21:13 Antibiotics) vancomycin Allergy Anaphylaxis Verified 12/21/18 21:13 Date of admission: 12/22/18 15:51 Primary care physician: Gail De Paz Consults: 12/21/18 21:45 Consult to Surgery [CONS] Stat Consulting Provider: Stevan Zavaleta Reason for Consult: GI bleed Call Completed: Yes 12/22/18 00:04 Consult to Pastoral Services [CONS] Routine Comment: Discharging clinician: Chu Arciniega - Constitutional Vitals: Temp Pulse Resp BP Pulse Ox 97.4 F L 71 15 146/72 99 12/24/18 09:48 12/24/18 09:48 12/24/18 09:48 12/24/18 09:48 12/24/18 09:48 General appearance: Present: cooperative, A&O X 3 Exam: General: A & O 3, In no acute distress Skin: Pale and dry HENNT: PERRLA. Head atraumatic and makes supple CVS S1 and S2 regular, no murmur RS: Clear to air entry bilaterally, no wheeze, no crackles Abdomen: Soft and nontender. Bowel sounds normal 4 Extremities: No cyanosis, clubbing, and edema - Patient Status Disposition: Home, Self-Care Condition: Good Overall status at discharge: patient is not back to baseline - Discharge Instructions Follow Up With: Gail De Paz [Primary Care Provider] - Forms: ED Satisfaction Letter - Diet and Activity Activity: as per physical therapy, increase activity as tolerated Diet: diabetic diet, low salt diet
[2018-12-24] MEDS ORDERED: FLU Vac QV 19-20 (6Month+)/PF 0.5 ML SYRINGE IM ONE (11:46)
== END 2018-12-24 12:14 | disposition home or self-care (01) | DRG 378 ==
LOC: EMEROOARM 17:38 → 3ANU 17:38 → SUATTDRO 22:05 → 3ANU 22:44
PROVIDERS: ADMIT Internal Medicine; ATTEND Family Medicine

== ENCOUNTER 2019-03-12 16:22 | Observation (INO) ==
[2019-03-12 17:28] LABS: Bilirubin,Urine Negative (Negative); Blood,Urine Negative (Negative); Clarity,Urine Clear (Clear); Color,Urine Yellow (Yellow); Glucose,Urine (UA) Normal (Normal); Ketones,Urine Negative (Negative); Leukocyte Esterase,Urine Negative (Negative); Nitrite,Urine Negative (Negative); Protein,Urine Trace mg/dL (Neg-Trace); Specific Gravity,Urine 1.014 (1.010-1.025); Urobilinogen,Urine Normal (Normal)
[2019-03-12 17:36] LABS: Activated Partial Thrombo Time 42.8 Seconds (26.0-36.0)
[2019-03-12 17:38] LABS: INR 5.3; Prothrombin Time 60.5 Seconds (9.4-12.1)
[2019-03-12 17:40] LABS: Basophils % 0.4 %; Eosinophils # 0.1 K/mcL (0.0-0.6); Eosinophils % 2.6 %; Hematocrit 30.9 % (35.3-44.9); Hemoglobin 9.9 g/dL (11.5-15.4); Immature Granulocytes % 0.4 % (0-4); Lymphocytes # 0.7 K/mcL (0.6-4.6); Lymphocytes % 13.9 %; Mean Corpuscular Hemoglobin 28.8 pg (28.0-33.3); Mean Corpuscular Volume 89.8 fL (83.0-100.0); Mean Platelet Volume 11.2 fL (9.4-12.4); Monocytes # 0.4 K/mcL (0.0-1.3); Monocytes % 8.7 %; Neutrophils # 3.7 K/mcL (1.6-8.9); Platelet Count 220 K/mcL (140-400); Red Blood Count 3.44 M/mcL (3.82-4.97); Red Cell Distribution Width 15.9 % (11.5-14.5)
[2019-03-12 17:55] LABS: Albumin 3.9 g/dL (3.5-5.7); Albumin/Globulin Ratio 1.8 (1.1-2.2); Bilirubin,Direct 0.1 mg/dL (0.0-0.2); Bilirubin,Indirect 0.4 mg/dL (0.0-1.0); Bilirubin,Total 0.5 mg/dL (0.3-1.0); Globulin 2.2 g/dL (2.4-3.5); Potassium 3.1 mEq/L (3.5-5.1); Total Protein 6.1 g/dL (6.4-8.9); Troponin I 0.04 ng/mL (< 0.04)
[2019-03-12] MEDS ORDERED: Furosemide 40 MG/4 ML VIAL IVP ONE (18:36)
[2019-03-12] MEDS ORDERED: rOPINIRole 1 MG TABLET PO ONE (18:56)
[2019-03-12] MEDS ORDERED: Aspirin 81 MG TAB.CHEW PO STA (19:52)
[2019-03-12] MEDS ORDERED: Carbidopa/Levodopa ER 50/200 TABLET PO SCH (22:00)
[2019-03-12] MEDS ORDERED: Ipratropium/Albuterol Neb 3 ML IH PRN (23:03)
[2019-03-12] MEDS ORDERED: Potassium Chloride Elixir 20 MEQ/15 ML UDC PO ONE (23:15)
[2019-03-12] MEDS: Ondansetron 4 MG/2 ML VIAL IVP PRN (23:32)
[2019-03-12] MEDS: Carbidopa/Levodopa ER 50/200 TABLET PO SCH (23:41)
[2019-03-12] MEDS: clonazePAM 0.5 MG TABLET PO SCH (23:41)
[2019-03-12] MEDS: traZODone 50 MG TABLET PO SCH (23:42)
[2019-03-13 05:55] LABS: Immature Reticulocyte % 22.5 % (11.0-38.0); Retculocyte # 0.08 M/mcL (0.05-0.10); Reticulocyte % 2.5 % (1.6-2.8)
[2019-03-13] MEDS ORDERED: *HR* Heparin 5,000 UNIT/ML VIAL SQ SCH (06:00)
[2019-03-13 06:02] LABS: INR 4.9; Prothrombin Time 56.3 Seconds (9.4-12.1)
[2019-03-13 06:17] LABS: % Iron Saturation 6 % (15-50); Iron 21 mcg/dL (50-170); Transferrin 265 mg/dL (203-362)
[2019-03-13 06:18] LABS: Calcium 8.7 mg/dL (8.6-10.3); Magnesium 1.6 mg/dL (1.6-2.6); Phosphorous 3.2 mg/dL (2.7-4.5); Potassium 3.4 mEq/L (3.5-5.1); Troponin I 0.05 ng/mL (< 0.04)
[2019-03-13 06:32] LABS: Ferritin 29 ng/mL (10-120)
[2019-03-13] MEDS: Cholecalciferol (D-3) 1,000 UNIT (25MCG) TABLET PO SCH (08:57)
[2019-03-13] MEDS: clonazePAM 0.5 MG TABLET PO SCH ×2 (08:58→21:07)
[2019-03-13] MEDS: Aspirin 81 MG TAB.CHEW PO SCH (08:58)
[2019-03-13] MEDS: Carbidopa/Levodopa ER 50/200 TABLET PO SCH ×3 (08:58→21:07)
[2019-03-13] MEDS: rOPINIRole 1 MG TABLET PO SCH ×3 (08:58→21:07)
[2019-03-13] MEDS ORDERED: Furosemide 40 MG/4 ML VIAL IVP SCH ×2 (09:00)
[2019-03-13] MEDS ORDERED: Warfarin perPT PO PRN ×2 (18:00)
[2019-03-13] MEDS: traZODone 50 MG TABLET PO SCH (21:07)
[2019-03-13] MEDS: Ondansetron 4 MG/2 ML VIAL IVP PRN (22:27)
[2019-03-14 06:53] LABS: Basophils % 0.4 %; Eosinophils # 0.2 K/mcL (0.0-0.6); Eosinophils % 3.1 %; Hematocrit 29.6 % (35.3-44.9); Hemoglobin 8.9 g/dL (11.5-15.4); Immature Granulocytes % 0.2 % (0-4); Lymphocytes # 0.7 K/mcL (0.6-4.6); Lymphocytes % 14.1 %; Mean Corpuscular HGB Conc 30.1 g/dL (31.6-35.5); Mean Corpuscular Hemoglobin 28.3 pg (28.0-33.3); Mean Platelet Volume 11.1 fL (9.4-12.4); Monocytes # 0.5 K/mcL (0.0-1.3); Monocytes % 9.8 %; Neutrophils # 3.5 K/mcL (1.6-8.9); Platelet Count 176 K/mcL (140-400); Red Blood Count 3.15 M/mcL (3.82-4.97); Red Cell Distribution Width 15.9 % (11.5-14.5); Segmented Neutrophils % 72.4 %; White Blood Count 4.8 K/mcL (4.3-11.1)
[2019-03-14 07:09] LABS: INR 3.6; Prothrombin Time 41.3 Seconds (9.4-12.1)
[2019-03-14 07:15] LABS: Calcium 8.9 mg/dL (8.6-10.3); Potassium 3.5 mEq/L (3.5-5.1)
[2019-03-14] MEDS: clonazePAM 0.5 MG TABLET PO SCH ×2 (08:37→20:35)
[2019-03-14] MEDS: Carbidopa/Levodopa ER 50/200 TABLET PO SCH ×3 (08:37→20:35)
[2019-03-14] MEDS: rOPINIRole 1 MG TABLET PO SCH ×3 (08:37→20:35)
[2019-03-14] MEDS: Aspirin 81 MG TAB.CHEW PO SCH (08:37)
[2019-03-14] MEDS: Cholecalciferol (D-3) 1,000 UNIT (25MCG) TABLET PO SCH (08:37)
[2019-03-14] MEDS: Furosemide 40 MG/4 ML VIAL IVP SCH (08:37)
[2019-03-14] MEDS ORDERED: Acetaminophen 325 MG TABLET PO PRN (16:46)
[2019-03-14] MEDS ORDERED: *HR* Warfarin 2.5 MG TABLET PO ONE (18:00)
[2019-03-14] MEDS: traZODone 50 MG TABLET PO SCH (20:35)
[2019-03-15 06:47] VITALS: BP 146/76
[2019-03-15 07:46] LABS: Basophils % 0.3 %; Eosinophils # 0.1 K/mcL (0.0-0.6); Eosinophils % 1.3 %; Hematocrit 30.7 % (35.3-44.9); Hemoglobin 9.4 g/dL (11.5-15.4); Immature Granulocytes % 0.3 % (0-4); Lymphocytes # 0.7 K/mcL (0.6-4.6); Lymphocytes % 8.4 %; Mean Corpuscular HGB Conc 30.6 g/dL (31.6-35.5); Mean Corpuscular Hemoglobin 28.6 pg (28.0-33.3); Mean Corpuscular Volume 93.3 fL (83.0-100.0); Mean Platelet Volume 11.3 fL (9.4-12.4); Monocytes # 0.5 K/mcL (0.0-1.3); Monocytes % 6.2 %; Platelet Count 205 K/mcL (140-400); Red Blood Count 3.29 M/mcL (3.82-4.97); Red Cell Distribution Width 15.8 % (11.5-14.5); Segmented Neutrophils % 83.5 %
[2019-03-15 07:52] LABS: Neutrophils # 6.4 K/mcL (1.6-8.9); White Blood Count 7.7 K/mcL (4.3-11.1)
[2019-03-15] MEDS: clonazePAM 0.5 MG TABLET PO SCH (07:56)
[2019-03-15] MEDS: Cholecalciferol (D-3) 1,000 UNIT (25MCG) TABLET PO SCH (07:57)
[2019-03-15] MEDS: Aspirin 81 MG TAB.CHEW PO SCH (07:57)
[2019-03-15] MEDS: Carbidopa/Levodopa ER 50/200 TABLET PO SCH (07:57)
[2019-03-15] MEDS: rOPINIRole 1 MG TABLET PO SCH (07:57)
[2019-03-15] MEDS: Furosemide 40 MG/4 ML VIAL IVP SCH (07:57)
[2019-03-15 08:03] LABS: Prothrombin Time 22.2 Seconds (9.4-12.1)
[2019-03-15 08:04] LABS: Calcium 9.6 mg/dL (8.6-10.3)
== END 2019-03-15 10:10 | disposition home or self-care (01) ==
LOC: 2ANU 16:22 → EMEROOARM 16:22 → SUATTDRO 20:47 → 2ANU 21:28
PROVIDERS: ADMIT Internal Medicine; ATTEND Student in an Organized Health Care Education/Training Program

== ENCOUNTER 2020-01-09 05:12 | Observation (INO) ==
[2020-01-09] MEDS ORDERED: Ondansetron 4 MG/2 ML VIAL IVP ONE (06:34)
[2020-01-09 06:51] LABS: Basophils % 0.6 %; Eosinophils % 0.8 %; Hemoglobin 8.9 g/dL (11.5-15.4); INR 2.4; Immature Granulocytes % 0.4 % (0-4); Lymphocytes # 0.5 K/mcL (0.6-4.6); Lymphocytes % 8.9 %; Mean Corpuscular HGB Conc 30.7 g/dL (31.6-35.5); Mean Corpuscular Hemoglobin 28.3 pg (28.0-33.3); Mean Corpuscular Volume 92.1 fL (83.0-100.0); Mean Platelet Volume 11.2 fL (9.4-12.4); Monocytes # 0.5 K/mcL (0.0-1.3); Monocytes % 9.3 %; Neutrophils # 4.1 K/mcL (1.6-8.9); Platelet Count 157 K/mcL (140-400); Prothrombin Time 27.3 Seconds (9.4-12.1); Red Blood Count 3.15 M/mcL (3.82-4.97); Red Cell Distribution Width 14.8 % (11.5-14.5); White Blood Count 5.2 K/mcL (4.3-11.1)
[2020-01-09 06:53] LABS: Activated Partial Thrombo Time 35.4 Seconds (26.0-36.0)
[2020-01-09 07:10] LABS: Alanine Aminotransferase 4 Units/L (7-52); Albumin/Globulin Ratio 1.9 (1.1-2.2); Alkaline Phosphatase 66 Units/L (34-104); Aspartate Amino Transferase 25 Units/L (13-39); BUN/Creatinine Ratio 20 (6-26); Bilirubin,Direct 0.2 mg/dL (0.0-0.2); Bilirubin,Indirect 0.8 mg/dL (0.0-1.0); Blood Urea Nitrogen 26 mg/dL (8-23); Calcium 9.2 mg/dL (8.6-10.3); Carbon Dioxide 25 mEq/L (23-29); Chloride 98 mEq/L (98-107); Globulin 2.1 g/dL (2.4-3.5); Glucose 97 mg/dL (70-105); Lipase 32 Units/L (11-82); Osmolality,Calculated 277 (280-300); Potassium 4.1 mEq/L (3.5-5.1); Sodium 131 mEq/L (136-145); Total Protein 6.1 g/dL (6.4-8.9); Troponin I < 0.03 ng/mL (< 0.04); eGFR For African Americans 47 (> 60); eGFR For Non-African Americans 39 (> 60)
[2020-01-09 07:28] LABS: Adenovirus Not Detected (Not Detect); Coronavirus 229E Not Detected (Not Detect); Coronavirus HKU1 Not Detected (Not Detect); Coronavirus NL63 Not Detected (Not Detect); Coronavirus OC43 Not Detected (Not Detect)
[2020-01-09 07:29] LABS: Bordetella Pertussis Not Detected (Not Detect); Chlamydophila pneumoniae Not Detected (Not Detect); Human Metapneumovirus Not Detected (Not Detect); Human Rhinovirus/Enterovirus Not Detected (Not Detect); Influenza A Subtype 2009 H1 Not Detected (Not Detect); Influenza B Not Detected (Not Detect); Mycoplasma pneumoniae Not Detected (Not Detect); Parainfluenza Virus 1 Not Detected (Not Detect); Parainfluenza Virus 2 Not Detected (Not Detect); Parainfluenza Virus 3 Not Detected (Not Detect); Parainfluenza Virus 4 Not Detected (Not Detect); Respiratory Syncytial Virus Not Detected (Not Detect); SARS-CoV-2 Not Detected (Not Detect)
[2020-01-09] MEDS ORDERED: Furosemide 20 MG/2 ML VIAL IVP ONE (07:46)
[2020-01-09 08:15] LABS: Bilirubin,Urine Negative (Negative); Blood,Urine Negative (Negative); Clarity,Urine Clear (Clear); Color,Urine Light-Yellow (Yellow); Glucose,Urine (UA) Normal (Normal); Hyaline Casts,Urine Few per lpf (None Seen); Ketones,Urine Negative (Negative); Leukocyte Esterase,Urine Small (Negative); Mucus,Urine Few per lpf (None-Few); Nitrite,Urine Negative (Negative); Protein,Urine 30 mg/dL (Neg-Trace); RBC,Urine 0-3 per hpf (0-3); Specific Gravity,Urine 1.014 (1.010-1.025); Squamous Epithelial Cell,Urine Few per hpf (None-Few); Urobilinogen,Urine Normal (Normal)
[2020-01-09] MEDS ORDERED: Naloxone 0.4 MG/ML INJ IVP PRN (08:15)
[2020-01-09] MEDS ORDERED: Perflutren Lipid Microsphere 1.3 ML in 0.9 % Sodium Chloride 8.7 ML IVP PRN (08:18)
[2020-01-09] MEDS: Acetaminophen 325 MG TABLET PO PRN (11:43)
[2020-01-09] MEDS: Ondansetron 4 MG/2 ML VIAL IVP PRN (13:55)
[2020-01-09] MEDS ORDERED: *HR* LORazepam 1 MG TABLET PO PRN (17:38)
[2020-01-09] MEDS ORDERED: Warfarin perPT PO PRN (18:00)
[2020-01-09] MEDS ORDERED: *HR* Warfarin 5 MG TABLET PO ONE (18:00)
[2020-01-09] MEDS: Furosemide 20 MG/2 ML VIAL IVP SCH (21:19)
[2020-01-10] MEDS: Acetaminophen 325 MG TABLET PO PRN ×2 (00:42→14:28)
[2020-01-10 01:48] LABS: Basophils % 0.9 %; Eosinophils % 0.7 %; Hematocrit 28.2 % (35.3-44.9); Hemoglobin 8.6 g/dL (11.5-15.4); Immature Granulocytes % 0.2 % (0-4); Lymphocytes # 0.5 K/mcL (0.6-4.6); Lymphocytes % 11.7 %; Mean Corpuscular HGB Conc 30.5 g/dL (31.6-35.5); Mean Corpuscular Hemoglobin 27.8 pg (28.0-33.3); Mean Corpuscular Volume 91.3 fL (83.0-100.0); Mean Platelet Volume 11.2 fL (9.4-12.4); Monocytes # 0.5 K/mcL (0.0-1.3); Monocytes % 10.8 %; Neutrophils # 3.3 K/mcL (1.6-8.9); Platelet Count 151 K/mcL (140-400); Red Blood Count 3.09 M/mcL (3.82-4.97); Red Cell Distribution Width 14.8 % (11.5-14.5); Segmented Neutrophils % 75.7 %; White Blood Count 4.4 K/mcL (4.3-11.1)
[2020-01-10 01:51] LABS: INR 2.6; Prothrombin Time 29.4 Seconds (9.4-12.1)
[2020-01-10 02:11] LABS: Calcium 8.8 mg/dL (8.6-10.3); Phosphorous 3.5 mg/dL (2.7-4.5); Potassium 4.1 mEq/L (3.5-5.1)
[2020-01-10] MEDS ORDERED: clonazePAM 0.5 MG TABLET PO PRN (08:10)
[2020-01-10] MEDS: Cholecalciferol (D-3) 1,000 UNIT (25MCG) TABLET PO SCH (09:07)
[2020-01-10] MEDS: Furosemide 20 MG/2 ML VIAL IVP SCH ×2 (09:08→20:29)
[2020-01-10] MEDS: rOPINIRole 1 MG TABLET PO SCH ×2 (09:08→20:29)
[2020-01-10] MEDS: Carbidopa/Levodopa ER 50/200 TABLET PO SCH ×2 (09:08→20:29)
[2020-01-10] MEDS: Ondansetron 4 MG/2 ML VIAL IVP PRN (09:13)
[2020-01-10] MEDS ORDERED: *HR* Warfarin 5 MG TABLET PO ONE (18:00)
[2020-01-10] MEDS ORDERED: traZODone 50 MG TABLET PO SCH (21:00)
[2020-01-11 02:37] LABS: Prothrombin Time 34.2 Seconds (9.4-12.1)
[2020-01-11 02:56] LABS: Potassium 3.6 mEq/L (3.5-5.1)
[2020-01-11 06:52] VITALS: BP 155/73
[2020-01-11] MEDS: rOPINIRole 1 MG TABLET PO SCH (09:23)
[2020-01-11] MEDS: Cholecalciferol (D-3) 1,000 UNIT (25MCG) TABLET PO SCH (09:23)
[2020-01-11] MEDS: Carbidopa/Levodopa ER 50/200 TABLET PO SCH (09:23)
[2020-01-11] MEDS: Furosemide 20 MG/2 ML VIAL IVP SCH (09:23)
== END 2020-01-11 09:34 | disposition home or self-care (01) ==
LOC: EMEROOARM 05:12 → CDU 05:12 → 3BNU 17:39
PROVIDERS: ADMIT Internal Medicine; ATTEND Internal Medicine

== ENCOUNTER 2020-08-23 13:50 | Observation (INO) ==
[2020-08-23] MEDS ORDERED: Nitroglycerin 1 INCH/GM PACKET TP ONE (14:41)
[2020-08-23 14:57] LABS: Basophils % 0.5 %; Eosinophils % 0.3 %; Hematocrit 28.9 % (35.3-44.9); Hemoglobin 8.5 g/dL (11.5-15.4); Immature Granulocytes % 0.3 % (0-4); Lymphocytes # 0.4 K/mcL (0.6-4.6); Lymphocytes % 6.9 %; Mean Corpuscular HGB Conc 29.4 g/dL (31.6-35.5); Mean Corpuscular Volume 88.4 fL (83.0-100.0); Mean Platelet Volume 11.6 fL (9.4-12.4); Monocytes # 0.6 K/mcL (0.0-1.3); Monocytes % 9.6 %; Neutrophils # 4.9 K/mcL (1.6-8.9); Platelet Count 143 K/mcL (140-400); Red Blood Count 3.27 M/mcL (3.82-4.97); Red Cell Distribution Width 15.7 % (11.5-14.5); Segmented Neutrophils % 82.4 %; White Blood Count 5.9 K/mcL (4.3-11.1)
[2020-08-23 15:01] LABS: Prothrombin Time 63.8 Seconds (9.4-12.1)
[2020-08-23 15:02] LABS: INR 5.8
[2020-08-23 16:02] LABS: BUN/Creatinine Ratio 26 (6-26); Blood Urea Nitrogen 40 mg/dL (8-23); Carbon Dioxide 19 mEq/L (23-29); Chloride 104 mEq/L (98-107); Glucose 104 mg/dL (70-105); Osmolality,Calculated 292 (280-300); Potassium 4.8 mEq/L (3.5-5.1); Sodium 136 mEq/L (136-145); Troponin I < 0.03 ng/mL (< 0.04); eGFR For African Americans 39 (> 60); eGFR For Non-African Americans 33 (> 60)
[2020-08-23] MEDS ORDERED: Naloxone 0.4 MG/ML INJ IVP PRN (17:04)
[2020-08-23] MEDS ORDERED: Ondansetron 4 MG/2 ML VIAL IVP PRN (17:04)
[2020-08-23] MEDS ORDERED: Ondansetron ODT 4 MG TAB.RAPDIS PO PRN (17:37)
[2020-08-23] MEDS: Carbidopa/Levodopa ER 50/200 TABLET PO SCH (19:53)
[2020-08-23] MEDS: traZODone 50 MG TABLET PO SCH (19:53)
[2020-08-23] MEDS: rOPINIRole 1 MG TABLET PO SCH (19:53)
[2020-08-23] MEDS: clonazePAM 0.5 MG TABLET PO PRN (19:57)
[2020-08-23 21:16] LABS: Magnesium 2.3 mg/dL (1.6-2.6)
[2020-08-24 05:15] LABS: Basophils % 0.4 %; Eosinophils % 0.8 %; Hematocrit 25.3 % (35.3-44.9); Hemoglobin 7.7 g/dL (11.5-15.4); Immature Granulocytes % 0.4 % (0-4); Lymphocytes # 0.5 K/mcL (0.6-4.6); Lymphocytes % 9.6 %; Mean Corpuscular HGB Conc 30.4 g/dL (31.6-35.5); Mean Corpuscular Hemoglobin 25.9 pg (28.0-33.3); Mean Corpuscular Volume 85.2 fL (83.0-100.0); Mean Platelet Volume 11.9 fL (9.4-12.4); Monocytes # 0.5 K/mcL (0.0-1.3); Monocytes % 8.8 %; Neutrophils # 4.1 K/mcL (1.6-8.9); Platelet Count 138 K/mcL (140-400); Red Blood Count 2.97 M/mcL (3.82-4.97); Red Cell Distribution Width 15.6 % (11.5-14.5); White Blood Count 5.1 K/mcL (4.3-11.1)
[2020-08-24 05:38] LABS: Calcium 8.6 mg/dL (8.6-10.3); Potassium 4.8 mEq/L (3.5-5.1)
[2020-08-24] MEDS ORDERED: Regadenoson 0.4 MG/5 ML SYRINGE IVP ONE ×2 (06:31→12:45)
[2020-08-24] MEDS: Carbidopa/Levodopa ER 50/200 TABLET PO SCH ×3 (08:02→20:59)
[2020-08-24] MEDS: Furosemide 40 MG TABLET PO SCH ×2 (08:02→14:50)
[2020-08-24] MEDS: rOPINIRole 1 MG TABLET PO SCH ×3 (08:02→20:59)
[2020-08-24] MEDS: Metoprolol XL (24 HR) Succ 50 MG TAB.ER.24H PO SCH ×2 (08:03→14:49)
[2020-08-24] MEDS: Cholecalciferol (D-3) 1,000 UNIT (25MCG) TABLET PO SCH ×2 (08:03→14:50)
[2020-08-24 09:21] LABS: Hematocrit 27.1 % (35.3-44.9); Hemoglobin 8.1 g/dL (11.5-15.4)
[2020-08-24 09:30] LABS: INR 4.5; Prothrombin Time 50.2 Seconds (9.4-12.1)
[2020-08-24 09:32] LABS: % Iron Saturation 9 % (15-50); Iron 38 mcg/dL (50-170); Transferrin 301 mg/dL (203-362)
[2020-08-24 09:52] LABS: Ferritin 28 ng/mL (10-120)
[2020-08-24] MEDS ORDERED: Iron Sucrose Complex 400 MG in 0.9 % Sodium Chloride 250 ML IVPB ONE (10:01)
[2020-08-24 10:10] LABS: Folate > 22.3 ng/mL (3.0-16.0); Vitamin B12 391 pg/mL (250-1100)
[2020-08-24] MEDS ORDERED: Ondansetron 4 MG/2 ML VIAL IVP ONE (11:30)
[2020-08-24] MEDS: traZODone 50 MG TABLET PO SCH (20:59)
[2020-08-24] MEDS: clonazePAM 0.5 MG TABLET PO PRN (21:05)
[2020-08-25 06:06] LABS: Hematocrit 26.8 % (35.3-44.9); Hemoglobin 8.1 g/dL (11.5-15.4)
[2020-08-25 06:09] LABS: INR 4.3
[2020-08-25 06:13] LABS: Prothrombin Time 47.6 Seconds (9.4-12.1)
[2020-08-25 06:36] VITALS: BP 152/84
[2020-08-25 06:39] LABS: Calcium 8.7 mg/dL (8.6-10.3); Magnesium 1.9 mg/dL (1.6-2.6); Phosphorous 3.4 mg/dL (2.7-4.5); Potassium 4.3 mEq/L (3.5-5.1)
[2020-08-25] MEDS: Furosemide 40 MG TABLET PO SCH (09:45)
[2020-08-25] MEDS: Metoprolol XL (24 HR) Succ 50 MG TAB.ER.24H PO SCH (09:45)
[2020-08-25] MEDS: Cholecalciferol (D-3) 1,000 UNIT (25MCG) TABLET PO SCH (09:46)
[2020-08-25] MEDS: Carbidopa/Levodopa ER 50/200 TABLET PO SCH ×2 (09:46→15:57)
[2020-08-25] MEDS: rOPINIRole 1 MG TABLET PO SCH ×2 (09:46→15:57)
[2020-08-25] MEDS: clonazePAM 0.5 MG TABLET PO PRN (09:55)
== END 2020-08-25 17:50 | disposition home or self-care (01) ==
LOC: 3BNU 13:50 → EMEROOARM 13:50 → SUATTDRO 16:14 → 3BNU 17:14
PROVIDERS: ADMIT Internal Medicine; ATTEND Internal Medicine

== ENCOUNTER 2020-09-15 11:10 | Observation (INO) ==
[2020-09-15] MEDS ORDERED: Furosemide 40 MG/4 ML VIAL IVP ONE (11:51)
[2020-09-15] MEDS ORDERED: Aspirin 81 MG TAB.CHEW PO ONE (11:51)
[2020-09-15 12:21] LABS: Basophils % 0.5 %; Eosinophils % 0.5 %; Hematocrit 31.2 % (35.3-44.9); Hemoglobin 9.4 g/dL (11.5-15.4); Immature Granulocytes % 0.2 % (0-4); Lymphocytes # 0.3 K/mcL (0.6-4.6); Lymphocytes % 7.6 %; Mean Corpuscular HGB Conc 30.1 g/dL (31.6-35.5); Mean Corpuscular Hemoglobin 28.1 pg (28.0-33.3); Mean Corpuscular Volume 93.1 fL (83.0-100.0); Mean Platelet Volume 11.5 fL (9.4-12.4); Monocytes # 0.5 K/mcL (0.0-1.3); Neutrophils # 3.3 K/mcL (1.6-8.9); Platelet Count 142 K/mcL (140-400); Red Blood Count 3.35 M/mcL (3.82-4.97); Red Cell Distribution Width 21.5 % (11.5-14.5); Segmented Neutrophils % 80.2 %; White Blood Count 4.1 K/mcL (4.3-11.1)
[2020-09-15 12:41] LABS: Alanine Aminotransferase 5 Units/L (7-52); Albumin 3.4 g/dL (3.5-5.7); Albumin/Globulin Ratio 1.8 (1.1-2.2); Alkaline Phosphatase 75 Units/L (34-104); Aspartate Amino Transferase 20 Units/L (13-39); BUN/Creatinine Ratio 23 (6-26); Bilirubin,Direct 0.2 mg/dL (0.0-0.2); Bilirubin,Indirect 0.5 mg/dL (0.0-1.0); Bilirubin,Total 0.7 mg/dL (0.3-1.0); Blood Urea Nitrogen 31 mg/dL (8-23); Calcium 8.6 mg/dL (8.6-10.3); Carbon Dioxide 23 mEq/L (23-29); Chloride 107 mEq/L (98-107); Globulin 1.9 g/dL (2.4-3.5); Glucose 108 mg/dL (70-105); Osmolality,Calculated 285 (280-300); Potassium 5.5 mEq/L (3.5-5.1); Sodium 134 mEq/L (136-145); Total Protein 5.3 g/dL (6.4-8.9); Troponin I < 0.03 ng/mL (< 0.04); eGFR For African Americans 45 (> 60); eGFR For Non-African Americans 37 (> 60)
[2020-09-15 13:06] LABS: INR 4.2
[2020-09-15 13:07] LABS: Anisocytosis 2+ (Not Present)
[2020-09-15 13:08] LABS: Activated Partial Thrombo Time 37.2 Seconds (26.0-36.0); Poikilocytosis 1+ (Not Present)
[2020-09-15 13:13] LABS: Prothrombin Time 47.1 Seconds (9.4-12.1)
[2020-09-15] MEDS ORDERED: Melatonin 3 MG TABLET PO PRN (14:34)
[2020-09-15] MEDS ORDERED: Ondansetron 4 MG/2 ML VIAL IVP PRN (14:34)
[2020-09-15] MEDS: Furosemide 40 MG/4 ML VIAL IVP SCH (16:49)
[2020-09-15] MEDS: clonazePAM 0.5 MG TABLET PO PRN (16:49)
[2020-09-15] MEDS: Acetaminophen 325 MG TABLET PO PRN (19:22)
[2020-09-15] MEDS: traZODone 50 MG TABLET PO SCH (21:40)
[2020-09-15] MEDS: Carbidopa/Levodopa ER 50/200 TABLET PO SCH (21:40)
[2020-09-15] MEDS: rOPINIRole 1 MG TABLET PO SCH (21:41)
[2020-09-16 05:49] LABS: Hematocrit 30.8 % (35.3-44.9); Hemoglobin 9.1 g/dL (11.5-15.4); Mean Corpuscular HGB Conc 29.5 g/dL (31.6-35.5); Mean Corpuscular Hemoglobin 27.1 pg (28.0-33.3); Mean Corpuscular Volume 91.7 fL (83.0-100.0); Mean Platelet Volume 11.5 fL (9.4-12.4); Platelet Count 133 K/mcL (140-400); Red Blood Count 3.36 M/mcL (3.82-4.97); Red Cell Distribution Width 21.3 % (11.5-14.5); White Blood Count 3.8 K/mcL (4.3-11.1)
[2020-09-16 06:04] LABS: INR 4.4
[2020-09-16] MEDS: Carbidopa/Levodopa ER 50/200 TABLET PO SCH ×3 (07:52→19:53)
[2020-09-16] MEDS: Metoprolol XL (24 HR) Succ 50 MG TAB.ER.24H PO SCH (07:52)
[2020-09-16] MEDS: rOPINIRole 1 MG TABLET PO SCH ×3 (07:52→19:53)
[2020-09-16] MEDS: Furosemide 40 MG/4 ML VIAL IVP SCH ×2 (07:53→15:36)
[2020-09-16 08:14] LABS: Calcium 8.8 mg/dL (8.6-10.3); Magnesium 1.7 mg/dL (1.6-2.6)
[2020-09-16] MEDS: traZODone 50 MG TABLET PO SCH (19:53)
[2020-09-16] MEDS: clonazePAM 0.5 MG TABLET PO PRN (19:53)
[2020-09-17] MEDS: Acetaminophen 325 MG TABLET PO PRN (00:50)
[2020-09-17 04:17] LABS: INR 3.3; Prothrombin Time 36.9 Seconds (9.4-12.1)
[2020-09-17] MEDS: Furosemide 40 MG/4 ML VIAL IVP SCH ×2 (07:20→17:21)
[2020-09-17] MEDS: Carbidopa/Levodopa ER 50/200 TABLET PO SCH ×3 (08:05→19:57)
[2020-09-17] MEDS: Metoprolol XL (24 HR) Succ 50 MG TAB.ER.24H PO SCH (08:05)
[2020-09-17] MEDS: rOPINIRole 1 MG TABLET PO SCH ×3 (08:06→19:57)
[2020-09-17 12:36] LABS: Calcium 8.6 mg/dL (8.6-10.3); Potassium 2.9 mEq/L (3.5-5.1)
[2020-09-17] MEDS: clonazePAM 0.5 MG TABLET PO PRN ×2 (14:43→19:59)
[2020-09-17] MEDS: traZODone 50 MG TABLET PO SCH (19:57)
[2020-09-18 04:44] LABS: Calcium 8.5 mg/dL (8.6-10.3); Potassium 3.8 mEq/L (3.5-5.1)
[2020-09-18] MEDS: rOPINIRole 1 MG TABLET PO SCH (08:50)
[2020-09-18] MEDS: Furosemide 40 MG/4 ML VIAL IVP SCH (08:50)
[2020-09-18] MEDS: Carbidopa/Levodopa ER 50/200 TABLET PO SCH (08:50)
[2020-09-18] MEDS: Metoprolol XL (24 HR) Succ 50 MG TAB.ER.24H PO SCH (08:50)
[2020-09-18 10:30] VITALS: BP 95/56
== END 2020-09-18 12:45 | disposition home or self-care (01) ==
LOC: 3BNU 11:10 → EMEROOARM 11:10 → SUATTDRO 13:58 → 3BNU 15:18
PROVIDERS: ADMIT Internal Medicine; ATTEND Internal Medicine

== ENCOUNTER 2020-10-01 20:41 | Observation (INO) ==
[2020-10-01 22:16] LABS: Basophils % 0.6 %; Eosinophils % 0.6 %; Hemoglobin 9.8 g/dL (11.5-15.4); Immature Granulocytes % 0.4 % (0-4); Lymphocytes # 0.5 K/mcL (0.6-4.6); Mean Corpuscular HGB Conc 29.7 g/dL (31.6-35.5); Mean Corpuscular Hemoglobin 28.2 pg (28.0-33.3); Mean Corpuscular Volume 95.1 fL (83.0-100.0); Mean Platelet Volume 11.8 fL (9.4-12.4); Monocytes # 0.5 K/mcL (0.0-1.3); Monocytes % 9.4 %; Neutrophils # 4.1 K/mcL (1.6-8.9); Platelet Count 146 K/mcL (140-400); Red Blood Count 3.47 M/mcL (3.82-4.97); Red Cell Distribution Width 23.3 % (11.5-14.5); White Blood Count 5.2 K/mcL (4.3-11.1)
[2020-10-01 22:26] LABS: BUN/Creatinine Ratio 21 (6-26); Blood Urea Nitrogen 29 mg/dL (8-23); Calcium 8.9 mg/dL (8.6-10.3); Carbon Dioxide 22 mEq/L (23-29); Chloride 105 mEq/L (98-107); Glucose 121 mg/dL (70-105); Osmolality,Calculated 283 (280-300); Potassium 6.1 mEq/L (3.5-5.1); Sodium 133 mEq/L (136-145); Troponin I < 0.03 ng/mL (< 0.04); eGFR For African Americans 43 (> 60); eGFR For Non-African Americans 36 (> 60)
[2020-10-01] MEDS ORDERED: Ondansetron 4 MG/2 ML VIAL IVP ONE (22:38)
[2020-10-01 22:41] LABS: Anisocytosis 1+ (Not Present); Macrocytosis Present (Not Present)
[2020-10-01 22:42] LABS: Ovalocytes 1+ (Not Present); Platelet Estimate Normal (Normal)
[2020-10-01] MEDS ORDERED: *HR* Dextrose 50 % in Water (Vial) 50 ML VIAL IVP ONE (23:13)
[2020-10-01] MEDS ORDERED: Calcium Gluconate 1gm/50mL 1 GM/50 ML BAG IVPB ONE (23:13)
[2020-10-01] MEDS ORDERED: Furosemide 40 MG/4 ML VIAL IVP ONE (23:13)
[2020-10-01] MEDS ORDERED: Insulin Human Regular 5 UNIT in 0.9 % Sodium Chloride 10 ML IV ONE (23:13)
[2020-10-02] MEDS ORDERED: Melatonin 3 MG TABLET PO PRN (02:11)
[2020-10-02] MEDS ORDERED: Acetaminophen 325 MG TABLET PO PRN (02:11)
[2020-10-02] MEDS ORDERED: Naloxone 0.4 MG/ML INJ IVP PRN (02:11)
[2020-10-02 02:51] LABS: Basophils % 0.8 %; Eosinophils % 0.6 %; Hematocrit 31.9 % (35.3-44.9); Hemoglobin 9.6 g/dL (11.5-15.4); Immature Granulocytes % 0.4 % (0-4); Lymphocytes # 0.4 K/mcL (0.6-4.6); Lymphocytes % 8.8 %; Mean Corpuscular HGB Conc 30.1 g/dL (31.6-35.5); Mean Corpuscular Hemoglobin 28.7 pg (28.0-33.3); Mean Corpuscular Volume 95.5 fL (83.0-100.0); Mean Platelet Volume 11.8 fL (9.4-12.4); Monocytes # 0.5 K/mcL (0.0-1.3); Monocytes % 9.4 %; Platelet Count 133 K/mcL (140-400); Red Blood Count 3.34 M/mcL (3.82-4.97); Red Cell Distribution Width 23.1 % (11.5-14.5)
[2020-10-02 03:13] LABS: Alanine Aminotransferase 11 Units/L (7-52); Albumin 3.6 g/dL (3.5-5.7); Albumin/Globulin Ratio 1.9 (1.1-2.2); Alkaline Phosphatase 83 Units/L (34-104); Aspartate Amino Transferase 45 Units/L (13-39); BUN/Creatinine Ratio 20 (6-26); Bilirubin,Total 0.6 mg/dL (0.3-1.0); Blood Urea Nitrogen 30 mg/dL (8-23); Calcium 8.8 mg/dL (8.6-10.3); Carbon Dioxide 20 mEq/L (23-29); Chloride 106 mEq/L (98-107); Globulin 1.9 g/dL (2.4-3.5); Glucose 90 mg/dL (70-105); Magnesium 1.9 mg/dL (1.6-2.6); Osmolality,Calculated 290 (280-300); Phosphorous 2.8 mg/dL (2.7-4.5); Sodium 137 mEq/L (136-145); Total Protein 5.5 g/dL (6.4-8.9); Troponin I < 0.03 ng/mL (< 0.04); eGFR For African Americans 40 (> 60); eGFR For Non-African Americans 33 (> 60)
[2020-10-02 03:28] LABS: Anisocytosis 1+ (Not Present); Platelet Estimate Normal (Normal); Poikilocytosis 1+ (Not Present)
[2020-10-02] MEDS: Ondansetron 4 MG/2 ML VIAL IVP PRN ×2 (04:12→13:14)
[2020-10-02] MEDS ORDERED: Furosemide 20 MG/2 ML VIAL IVP ONE (16:00)
[2020-10-02] MEDS ORDERED: clonazePAM 0.5 MG TABLET PO PRN (16:19)
[2020-10-02] MEDS: Metoprolol XL (24 HR) Succ 50 MG TAB.ER.24H PO SCH (17:35)
[2020-10-02] MEDS: Apixaban 2.5 MG TABLET PO SCH (20:22)
[2020-10-02] MEDS: rOPINIRole 1 MG TABLET PO SCH (20:22)
[2020-10-02] MEDS: Carbidopa/Levodopa ER 50/200 TABLET PO SCH (20:22)
[2020-10-02] MEDS ORDERED: traZODone 50 MG TABLET PO SCH (21:00)
[2020-10-03 03:37] LABS: Calcium 8.5 mg/dL (8.6-10.3); Potassium 3.9 mEq/L (3.5-5.1)
[2020-10-03 04:59] VITALS: BP 136/76
[2020-10-03] MEDS: rOPINIRole 1 MG TABLET PO SCH (07:45)
[2020-10-03] MEDS: Carbidopa/Levodopa ER 50/200 TABLET PO SCH (07:45)
[2020-10-03] MEDS: Apixaban 2.5 MG TABLET PO SCH (07:45)
[2020-10-03] MEDS: Metoprolol XL (24 HR) Succ 50 MG TAB.ER.24H PO SCH (07:46)
[2020-10-03] MEDS ORDERED: metOLazone 5 MG TABLET PO SCH (09:00)
[2020-10-03] MEDS ORDERED: Furosemide 40 MG TABLET PO SCH (09:00)
== END 2020-10-03 12:48 | disposition home health service (06) ==
LOC: 3ANU 20:41 → EMEROOARM 20:41 → SUATTDRO 10-02 00:07 → 3ANU 10-02 00:46
PROVIDERS: ADMIT Family Medicine; ATTEND Internal Medicine